=== PATIENT | male | born 1990 | race Caucasian/White ===

== ENCOUNTER 2019-05-24 19:43 | Emergency (ER) | payer OTHER ==
[2019-05-24 20:56] LABS: ABSOLUTE LYMPHOCYTES (AUTO) 1.7 10^3/uL (0.5-4.7); ABSOLUTE MONOCYTES (AUTO) 0.7 10^3/uL (0.1-1.4); ABSOLUTE NEUT (AUTO) 9.4 10^3/uL (1.7-8.2); BASOPHILS % (AUTO) 0.4 % (0-2); EOSINOPHILS % (AUTO) 0.3 % (0-6); HEMATOCRIT 45.5 % (37.9-51.0); HEMOGLOBIN 15.6 g/dL (13.5-17.0); LYMPHOCYTES % (AUTO) 13.9 % (13-45); MEAN CORPUSCULAR HEMOGLOBIN 28.9 pg (27.0-33.4); MEAN CORPUSCULAR HGB CONC 34.3 g/dL (32.0-36.0); MEAN CORPUSCULAR VOLUME 84 fl (80-97); MONOCYTES % (AUTO) 6.2 % (3-13); PLATELET COUNT 278 10^3/uL (150-450); RED BLOOD COUNT 5.41 10^6/uL (4.35-5.55); RED CELL DISTRIBUTION WIDTH 13.2 % (11.5-14.0); SEGMENTED NEUTROPHILS % (AUTO) 79.2 % (42-78); TOTAL CELLS COUNTED % (AUTO) 100 %; WHITE BLOOD COUNT 11.9 10^3/uL (4.0-10.5)
--- NOTE | 2019-05-24 21:05 | ER Document Report ---
ED General - General Chief Complaint: Chest Tightness Stated Complaint: CHEST PAIN Time Seen by Provider: 05/24/19 21:02 Primary Care Provider: VASYL RUST [Primary Care Provider] - Follow up as needed Notes: Patient is a 28-year-old male that comes emergency department for chief complaint of chest pain along the left side of the chest that is sharp, worse with pressing on the area and with movement, and started yesterday. Patient also reports feeling lightheaded, feeling body aches, and feeling generally rundown. He denies shortness of breath or cough (however he is coughing frequently on exam), denies nausea or vomiting, denies fever. He denies injury. He smokes but denies alcohol and recreational drugs. He denies any diagnosed medical history or daily medications. TRAVEL OUTSIDE OF THE [place] IN LAST 30 DAYS: No - Related Data Allergies/Adverse Reactions: No Known Allergies Allergy (Verified 05/24/19 20:27) Past Medical History - General Information source: Patient - Social History Smoking Status: Current Every Day Smoker Chew tobacco use (# tins/day): No Smoking Education Provided: Yes - <3 min Frequency of alcohol use: None Drug Abuse: None Lives with: Family Family History: Reviewed & Not Pertinent Patient has suicidal ideation: No Patient has homicidal ideation: No Review of Systems - Review of Systems Constitutional: See HPI EENT: No symptoms reported Cardiovascular: No symptoms reported Respiratory: See HPI Gastrointestinal: No symptoms reported Genitourinary: No symptoms reported Male Genitourinary: No symptoms reported Musculoskeletal: No symptoms reported Skin: No symptoms reported Hematologic/Lymphatic: No symptoms reported Neurological/Psychological: No symptoms reported Physical Exam - Vital signs Vitals: Temp Pulse Resp BP Pulse Ox 97.5 F 77 20 153/81 H 97 05/24/19 19:58 05/24/19 19:58 05/24/19 19:58 05/24/19 19:58 05/24/19 19:58 - Notes Notes: GENERAL: Alert, interacts well. No acute distress. HEAD: Normocephalic, atraumatic. EYES: Pupils equal, round, and reactive to light. Extraocular movements intact. ENT: Oral mucosa moist, tongue midline. Oropharynx unremarkable. Airway patent. Nares patent, no nasal septal hematoma, TM's intact. NECK: Full range of motion. Supple. Trachea midline. LUNGS: Clear to auscultation bilaterally, no wheezes, rales, or rhonchi. No respiratory distress. There is specific and reproducible tenderness over the left upper chest wall extending towards the left pectoral area. This is worse with palpation and with movement. No erythema, swelling, crepitus, or severe pain. HEART: Regular rate and rhythm. No murmur ABDOMEN: Soft, non-tender. Non-distended. EXTREMITIES: Moves all 4 extremities spontaneously. No edema, normal radial and dorsalis pedis pulses bilaterally. No cyanosis. BACK: no cervical, thoracic, lumbar midline tenderness. No saddle anesthesia, normal distal neurovascular exam. Moves all extremities in full range of motion. NEUROLOGICAL: Alert and oriented x3. Normal speech. Cranial nerves II through XII grossly intact. PSYCH: Normal affect, normal mood. SKIN: Warm, dry, normal turgor. No rashes or lesions noted. Course - Re-evaluation Re-evalutation: Patient with generalized symptoms suggesting viral illness, he also has chest wall tenderness on exam which is worse with palpation and with motion. EKG unre markable, chest x-ray unremarkable, work-up from triage reviewed including CBC, chemistry, troponin and this is unremarkable. Vital signs unremarkable other than borderline hypertension. Patient symptoms have been going on for since yesterday. Very low suspicion of ACS, pulmonary embolism, or any other acute intrathoracic etiology. Discussed chest wall pain, viral illness, options. Patient states he will be having to take anti-inflammatories, he is very happy with his work-up, he is requesting discharge. Discussed return precautions and follow-up. Patient states understanding and agreement. - Vital Signs Vital signs: Temp Pulse Resp BP Pulse Ox 98.4 F 71 16 139/87 H 99 05/24/19 23:26 05/24/19 23:26 05/24/19 23:26 05/24/19 23:26 05/24/19 23:26 - Laboratory Result Diagrams: 05/24/19 20:34 05/24/19 20:34 Laboratory results interpreted by me: 05/24/19 20:34 WBC 11.9 H Absolute Neuts (auto) 9.4 H Seg Neutrophils % 79.2 H - EKG Interpretation by Me Additional EKG results interpreted by me: EKG shows sinus rhythm at a rate of 76, QTC of 405, normal axis, no T wave inversions or ST segment changes in consecutive leads. Discharge - Discharge Clinical Impression: Chest wall pain, Lightheadedness, Body aches Condition: Stable Disposition: HOME, SELF-CARE Additional Instructions: Your testing does not show any concerning findings. Your evaluation indicates costochondritis, inflammation of the cartilage between your ribs. This is most likely because you are fighting a viral illness, this should simply resolve with time. I recommend hydration, rest, and the prescribed anti-inflammatory. Follow-up with primary care. Return for any concerning symptoms including spiking fever, passing out, difficulty breathing, severe worsening pain, or any other concerning symptoms. Prescriptions: Naproxen 500 mg PO BID PRN #20 tablet PRN Reason: Forms: Return to Work, Elevated Blood Pressure Referrals: [facility] [Primary Care Provider] - Follow up as needed
[2019-05-24 21:06] LABS: ALBUMIN 4.9 g/dL (3.5-5.0); ALKALINE PHOSPHATASE 60 U/L (38-126); ANION GAP 11 (5-19); ASPARTATE AMINO TRANSFERASE 34 U/L (17-59); BILIRUBIN,TOTAL 0.5 mg/dL (0.2-1.3); BLOOD UREA NITROGEN 13 mg/dL (7-20); CALCIUM 10.2 mg/dL (8.4-10.2); CARBON DIOXIDE 26 mmol/L (22-30); CHLORIDE 102 mmol/L (98-107); CREATINE KINASE 151 U/L (55-170); GLUCOSE 94 mg/dL (75-110); POTASSIUM 4.4 mmol/L (3.6-5.0); TOTAL PROTEIN 8.1 g/dL (6.3-8.2)
[2019-05-24] MEDS ORDERED: ASPIRIN 81 MG TABLET, CHEWABLE PO ONE (21:12)
[2019-05-24] MEDS ORDERED: NORMAL SALINE 1000 ML 1,000 ML IV ONE (21:12)
--- NOTE | 2019-05-24 21:12 | RADIOLOGY REPORT (SQ) ---
EXAM DESCRIPTION: X-RAY CHEST TWO VIEWS CLINICAL HISTORY: 28 years, Male, cp COMPARISON: None. FINDINGS: PA and lateral chest radiographs were performed at 2052 hours on 05/24/2019. The lungs are well expanded and clear. The costophrenic sulci are sharp. The cardiac silhouette, hilar regions, trachea, soft tissues and bony structures are unremarkable. IMPRESSION: No acute cardiopulmonary disease.
[2019-05-24 21:25] LABS: CREATINE KINASE MB 0.85 ng/mL (<4.55)
[2019-05-24 21:26] LABS: TROPONIN I < 0.012 ng/mL
[2019-05-24 23:28] VITALS: BP 139/87
== END 2019-05-24 23:26 | disposition home or self-care (01) ==
LOC: ER 19:43
DX: R07.89 Other chest pain (principal); R42 Dizziness and giddiness; M79.10 Myalgia, unspecified site; R05 Cough; F17.200 Nicotine dependence, unspecified, uncomplicated
CPT/HCPCS: 99285; 96360; 36415; 82553; 82550; 85025; 80053; 84484; 71046; J7030

== ENCOUNTER 2019-10-23 15:41 | Emergency (ER) | payer OTHER ==
--- NOTE | 2019-10-23 16:53 | ER Document Report ---
ED Medical Screen (RME) - General Chief Complaint: Abdominal Pain Stated Complaint: ABDOMINAL PAIN Time Seen by Provider: 10/23/19 16:51 Primary Care Provider: VASYL RUST [Primary Care Provider] - Follow up as needed Mode of Arrival: Ambulatory Information source: Patient Notes: HPI; 29-year-old male presents to the emergency room with intermittent pressure type abdominal pain for the past 2 weeks. Worse today. Complains of nausea but no vomiting. No fevers. No urinary symptoms. Taking Nexium without relief. PE: Oriented x3. Mild distress noted. Lungs: Clear to auscultation without rales rhonchi wheezes. Heart: Regular rate rhythm without murmurs rubs or gallops. Abdomen soft, generalized discomfort on palpation. Bowel sounds present x4. No guarding, no rebound, I have greeted and performed a rapid initial assessment of this patient. A comprehensive ED assessment and evaluation of the patient, analysis of test results and completion of the medical decision making process will be conducted by additional ED providers. I have specifically instructed the patient or family members with the patient to immediately return to any nursing staff should anything change in the patient's condition or with their chief complaint. TRAVEL OUTSIDE OF THE [place] IN LAST 30 DAYS: No - Related Data Allergies/Adverse Reactions: No Known Allergies Allergy (Verified 10/23/19 16:46) Home Medications: nexium otc Past Medical History - Social History Chew tobacco use (# tins/day): Yes Frequency of alcohol use: None Drug Abuse: None Physical Exam - Vital signs Vitals: Temp Pulse Resp BP Pulse Ox 97.8 F 91 16 145/84 H 96 10/23/19 15:44 10/23/19 15:44 10/23/19 15:44 10/23/19 15:44 10/23/19 15:44 Course - Vital Signs Vital signs: Temp Pulse Resp BP Pulse Ox 97.8 F 91 16 145/84 H 96 10/23/19 16:47 10/23/19 15:44 10/23/19 15:44 10/23/19 15:44 10/23/19 15:44 Doctor's Discharge - Discharge Referrals: [facility] [Primary Care Provider] - Follow up as needed
[2019-10-23 17:37] LABS: ABSOLUTE BASOPHILS # (AUTO) 0.1 10^3/uL (0.0-0.2); ABSOLUTE EOSINOPHILS # (AUTO) 0.1 10^3/uL (0.0-0.6); ABSOLUTE LYMPHOCYTES (AUTO) 2.5 10^3/uL (0.5-4.7); ABSOLUTE MONOCYTES (AUTO) 0.9 10^3/uL (0.1-1.4); ABSOLUTE NEUT (AUTO) 7.4 10^3/uL (1.7-8.2); BASOPHILS % (AUTO) 0.9 % (0-2); HEMATOCRIT 43.1 % (37.9-51.0); HEMOGLOBIN 14.9 g/dL (13.5-17.0); LYMPHOCYTES % (AUTO) 22.8 % (13-45); MEAN CORPUSCULAR HEMOGLOBIN 29.2 pg (27.0-33.4); MEAN CORPUSCULAR HGB CONC 34.6 g/dL (32.0-36.0); MEAN CORPUSCULAR VOLUME 84 fl (80-97); MONOCYTES % (AUTO) 8.5 % (3-13); PLATELET COUNT 238 10^3/uL (150-450); RED CELL DISTRIBUTION WIDTH 13.1 % (11.5-14.0); SEGMENTED NEUTROPHILS % (AUTO) 66.8 % (42-78); TOTAL CELLS COUNTED % (AUTO) 100 %; WHITE BLOOD COUNT 11.1 10^3/uL (4.0-10.5)
[2019-10-23 17:52] LABS: APPEARANCE,URINE CLEAR; BILIRUBIN,URINE NEGATIVE (NEGATIVE); COLOR,URINE YELLOW; GLUCOSE, URINE NEGATIVE (NEGATIVE); KETONES,URINE NEGATIVE (NEGATIVE); LEUKOCYTE ESTERASE,URINE NEGATIVE (NEGATIVE); NITRITE,URINE NEGATIVE (NEGATIVE); PROTEIN,URINE NEGATIVE (NEGATIVE); URINE SPECIFIC GRAVITY 1.017; UROBILINOGEN,URINE NEGATIVE mg/dL (<2.0)
[2019-10-23 17:56] LABS: ALBUMIN 4.6 g/dL (3.5-5.0); ALKALINE PHOSPHATASE 51 U/L (38-126); ANION GAP 11 (5-19); ASPARTATE AMINO TRANSFERASE 36 U/L (17-59); BILIRUBIN,TOTAL 0.5 mg/dL (0.2-1.3); BLOOD UREA NITROGEN 14 mg/dL (7-20); CALCIUM 9.7 mg/dL (8.4-10.2); CARBON DIOXIDE 23 mmol/L (22-30); CHLORIDE 103 mmol/L (98-107); GLUCOSE 109 mg/dL (75-110); POTASSIUM 4.4 mmol/L (3.6-5.0); TOTAL PROTEIN 7.6 g/dL (6.3-8.2)
--- NOTE | 2019-10-23 18:02 | RADIOLOGY REPORT (SQ) ---
EXAM DESCRIPTION: CT ABD/PELVIS WITH IV ONLY IMAGES COMPLETED DATE/TIME: 10/23/2019 5:48 pm REASON FOR STUDY: abdominal pain COMPARISON: None. TECHNIQUE: CT scan of the abdomen and pelvis performed using helical scanning technique with dynamic intravenous contrast injection. No oral contrast. Images reviewed with lung, soft tissue, and bone windows. Reconstructed coronal and sagittal MPR images reviewed. Delayed images for evaluation of the urinary system also acquired. All images stored on PACS. All CT scanners at this facility use dose modulation, iterative reconstruction, and/or weight based d osing when appropriate to reduce radiation dose to as low as reasonably achievable (ALARA). [facility]: Dose Right [facility]: CareDose [facility]: Dose Right [facility]: Teradose 4D [facility]: Screen Fix Gibson CONTRAST TYPE AND DOSE: 99 mL Omnipaque 350- low osmolar. RENAL FUNCTION: None required. The patient is less than 50 years old. RADIATION DOSE: CT Rad equipment meets quality standard of care and radiation dose reduction techniq ues were employed. CTDIvol: 7.5 - 10.6 mGy. DLP: 986 mGy-cm.. LIMITATIONS: None. FINDINGS: LOWER CHEST: No significant findings. No nodules or infiltrates. LIVER: Hepatic steatosis. No masses. No intrahepatic biliary dilatation. SPLEEN: Normal size. No focal lesions. PANCREAS: No masses. No significant calcifications. No adjacent inflammation or peripancreatic fluid collections. Pancreatic duct not dilated. GALLBLADDER: No identified stones by CT criteria. No inflammatory changes to suggest cholecystitis. ADRENAL GLANDS: No significant masses or asymmetry. RIGHT KIDNEY AND URETER: No solid masses. No significant calcifications. No hydronephrosis or hyd roureter. LEFT KIDNEY AND URETER: No solid masses. No significant calcifications. No hydronephrosis or hydr oureter. AORTA AND VESSELS: No aneurysm. No dissection. Renal arteries, SMA, celiac without stenosis. RETROPERITONEUM: No retroperitoneal adenopathy, hemorrhage or masses. BOWEL AND PERITONEAL CAVITY: No masses or inflammatory changes. No free fluid or peritoneal masses. APPENDIX: Normal. PELVIS: No mass. No free fluid. The bladder is decompressed. ABDOMINAL WALL: No masses. No hernias. BONES: No significant or acute findings. OTHER: No other significant finding. IMPRESSION: Hepatic steatosis. No evidence of acute intra-abdominal infectious/inflammatory process . TECHNICAL DOCUMENTATION: JOB ID: [id number] Quality ID # [id number]: Final reports with documentation of one or more dose reduction techniques (e.g., Au tomated exposure control, adjustment of the mA and/or kV according to patient size, use of iterative reconstruction technique) 2010 [employer]- All Rights Reserved Reading location - IP/workstation name: [email or web address]
[2019-10-23] MEDS ORDERED: SUCRALFATE 1 GM TABLET PO ONE (20:49)
[2019-10-23] MEDS ORDERED: FAMOTIDINE 20 MG TABLET PO ONE (20:50)
[2019-10-23] MEDS ORDERED: ONDANSETRON 4 MG TAB.RAPDIS PO ONE (20:50)
--- NOTE | 2019-10-23 20:53 | ER Document Report ---
ED GI/ - General Chief Complaint: Abdominal Pain Stated Complaint: ABDOMINAL PAIN Time Seen by Provider: 10/23/19 16:51 Primary Care Provider: GERALDINE BERUMEN MD [ACTIVE STAFF] - Follow up as needed Mode of Arrival: Ambulatory Notes: Patient is a 29-year-old male that comes emergency department for chief complaint of intermittent abdominal pain for the past couple of weeks. Pain is in the upper abdomen mainly, also worse on the left side. Symptoms became worse over the past day, reports increased nausea but denies vomiting. He is able to have bowel movements without difficulty which are normal reportedly. He denies fever, chest pain, shortness of breath, flank pain. He states he started taking Nexium without relief. Patient smokes, drinks alcohol occasionally, denies recreational drugs. TRAVEL OUTSIDE OF THE [place] IN LAST 30 DAYS: No - Related Data Allergies/Adverse Reactions: No Known Allergies Allergy (Verified 10/23/19 16:46) Home Medications: nexium otc Past Medical History - General Information source: Patient - Social History Smoking Status: Current Every Day Smoker Chew tobacco use (# tins/day): Yes Frequency of alcohol use: Occasional Drug Abuse: None Lives with: Family Family History: Reviewed & Not Pertinent Patient has homicidal ideation: No GI Medical History: Reports: Hx Gastroesophageal Reflux Disease, Hx Hiatal Hernia - Immunizations Hx Diphtheria, Pertussis, Tetanus Vaccination: Yes Review of Systems - Review of Systems Constitutional: No symptoms reported EENT: No symptoms reported Cardiovascular: No symptoms reported Respiratory: No symptoms reported Gastrointestinal: See HPI Genitourinary: No symptoms reported Male Genitourinary: No symptoms reported Musculoskeletal: No symptoms reported Skin: No symptoms reported Hematologic/Lymphatic: No symptoms reported Neurological/Psychological: No symptoms reported Physical Exam - Vital signs Vitals: Temp Pulse Resp BP Pulse Ox 97.8 F 91 16 145/84 H 96 10/23/19 15:44 10/23/19 15:44 10/23/19 15:44 10/23/19 15:44 10/23/19 15:44 - Notes Notes: GENERAL: Alert, interacts well. No acute distress. HEAD: Normocephalic, atraumatic. EYES: Pupils equal, round, and reactive to light. Extraocular movements intact. ENT: Oral mucosa moist, tongue midline. Oropharynx unremarkable. Airway patent. LUNGS: Clear to auscultation bilaterally, no wheezes, rales, or rhonchi. No respiratory distress. Non-tender chest wall. HEART: Regular rate and rhythm. No murmur ABDOMEN: Soft, non-tender. Non-distended. Bowel sounds present in all 4 quad rants. GENITOURINARY: Deferred EXTREMITIES: Moves all 4 extremities spontaneously. No edema, normal radial and dorsalis pedis pulses bilaterally. No cyanosis. BACK: no cervical, thoracic, lumbar midline tenderness. No saddle anesthesia, normal distal neurovascular exam. Moves all extremities in full range of motion. NEUROLOGICAL: Alert and oriented x3. Normal speech. Cranial nerves II through XII grossly intact. Strength 5/5 in all extremities. PSYCH: Normal affect, normal mood. SKIN: Warm, dry, normal turgor. No rashes or lesions noted. Course - Re-evaluation Re-evalutation: Patient's abdomen is benign and nontender. Symptoms are worse with food, intermittent. CBC, chemistry, lipase unremarkable, CAT scan from triage re viewed and unremarkable except for fatty liver I discussed this with patient and primary care follow-up in regards to this. Patient on patient's intermittent symptoms, negative work-up, reassuring exam, I am most strongly suspect inflammation of the upper gastrointestinal tract as the cause of his symptoms, very low suspicion of acute abdomen. Patient states he has had this in the past. I discussed results, recommendations, treatments, follow-up, and return precautions. Patient states understanding and agreement. Stable and well- appearing at time of discharge. - Vital Signs Vital signs: Temp Pulse Resp BP Pulse Ox 97.0 F 62 16 118/58 L 100 10/23/19 21:23 10/23/19 21:23 10/23/19 21:23 10/23/19 21:23 10/23/19 21:23 - Laboratory Result Diagrams: 10/23/19 17:26 10/23/19 17:26 Laboratory results interpreted by me: 10/23/19 10/23/19 17:26 17:26 WBC 11.1 H Sodium 136.8 L Discharge - Discharge Clinical Impression: Abdominal pain Qualifiers: Abdominal location: generalized Qualified Code(s): R10.84 - Generalized ab dominal pain Condition: Stable Disposition: HOME, SELF-CARE Additional Instructions: Your scan and tests do not show any concerning findings. However your exam and symptoms are consistent with inflammation of the upper abd ominal tract (not seen well on cat scan). Take the carafate and famotidine to treat this, take the zofran for nausea if needed. You can take Tylenol, Tums, Rolaids, etc if needed for additional relie f. Avoid caffeine, alcohol, smoking, NSAIDs (ibuprofen, naproxen, Aspirin, BC powder, etc), especially while you are healing. Follow up with Primary Care (and likely Gastroenterology - see referral) for additional testing and evaluation if symptoms continue. Return for any concerning symptoms (severe worsening pain, vomiting, vomiting blood, black stools, fever, etc). Prescriptions: Sucralfate [Carafate 1 gm Tablet] 1 gm PO QID #20 tablet Famotidine [Pepcid 20 mg Tablet] 20 mg PO BID #20 tablet Ondansetron [Zofran Odt 4 mg Tablet] 1 - 2 tab PO Q4H PRN #15 tab.rapdis PRN Reason: For Nausea/Vomiting Referrals: GERALDINE BERUMEN MD [ACTIVE STAFF] - Follow up as needed
[2019-10-23 21:25] VITALS: BP 118/58
== END 2019-10-23 21:25 | disposition home or self-care (01) ==
LOC: ER 15:41
DX: R10.84 Generalized abdominal pain (principal); R10.9 Unspecified abdominal pain; R10.10 Upper abdominal pain, unspecified; R11.0 Nausea; Z79.899 Other long term (current) drug therapy; F17.290 Nicotine dependence, other tobacco product, uncomplicated
CPT/HCPCS: 99284; 36415; 83690; 85025; 80053; 81001; 74177; S0119